=== PATIENT | male | born 1960 | race Caucasian/White ===

== ENCOUNTER 2021-12-16 06:12 | Outpatient (REF) | payer OTHER, SELFPAY ==
[2021-12-16 07:33] LABS: Hematocrit 37.7 % (42.0-52.0); Hemoglobin 12.9 g/dl (14.0-18.0); Mean Corpuscular HGB Conc 34.2 g/dl (31.0-36.0); Mean Corpuscular Hemoglobin 31.4 pg (27.0-33.0); Mean Corpuscular Volume 91.7 fL (80.0-98.0); Mean Platelet Volume 10.7 fL (9.4-12.4); Platelet Count 326 X10*3/uL (160-400); Red Blood Count 4.11 X10*6/uL (4.60-5.80); Red Cell Distribution Width 12.7 % (11.0-16.0); White Blood Count 10.8 X10*3/uL (4.8-10.8)
[2021-12-16 08:03] LABS: Alanine Aminotransferase 24 U/L (0-40); Albumin Level 4.3 g/dL (3.5-5.0); Alkaline Phosphatase 88 U/L (39-117); Anion Gap 13 (12-20); Aspartate Amino Transferase 28 U/L (5-37); Bilirubin Total 0.4 mg/dL (0.0-1.0); Blood Urea Nitrogen 12 mg/dL (9-16); Calcium 9.6 mg/dL (8.4-10.2); Carbon Dioxide 26 mmol/L (22-29); Chloride 100 mmol/L (96-108); Cholesterol 223 mg/dL; Estimated Glomerular Filt Rate > 60; Glucose Fasting 102 mg/dL (60-99); HDL Cholesterol 35 mg/dL; LDL Cholesterol Calculated 143 mg/dl; Potassium 4.9 mmol/L (3.3-5.1); Sodium 134 mmol/L (135-145); Total Protein 7.3 g/dL (6.5-8.0); Triglycerides 225 mg/dL
[2021-12-16 08:16] LABS: TSH reflex Free T4 1.55 uIU/mL (0.32-4.0)
[2021-12-16 08:28] LABS: Creatinine Urine 160.82 mg/dL; Microalbumin Urine < 5.0 mg/L
== END 2021-12-16 06:13 | disposition home or self-care (01) ==
LOC: HO.LAB 06:12
PROVIDERS: PCP Physician Assistant; Visit Provider Physician Assistant
DX: Z12.5 Encounter for screening for malignant neoplasm of prostate (principal); Z12.11 Encounter for screening for malignant neoplasm of colon
CPT/HCPCS: 36415; 80053; 80061; 82043; 84153; 84443; 85027

== ENCOUNTER 2022-06-05 16:36 | Emergency (ER) | payer OTHER, SELFPAY ==
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
[2022-06-05 17:01] VITALS: BP 158/81; PULSE 96; RESP 16; TEMP 36.8; O2SAT 100; BMI 25.9
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
[2022-06-05] MEDS: Diphth,Pertus(ACell),Tet Adult 0.5 ML SYRINGE IM (18:33)
== END 2022-06-05 19:56 | disposition home or self-care (01) ==
PROVIDERS: Emergency Provider Emergency Medicine; PCP Physician Assistant
DX: S61.216A Laceration without foreign body of right little finger without damage to nail, initial encounter (principal); S82.831A Other fracture of upper and lower end of right fibula, initial encounter for closed fracture; V28.09XA Other motorcycle driver injured in noncollision transport accident in nontraffic accident, initial encounter; Y93.89 Activity, other specified; Y92.414 Local residential or business street as the place of occurrence of the external cause; Y99.9 Unspecified external cause status
CPT/HCPCS: 12001; 29515; 73590; 73600; 90471; 90715; 99282; 99284

== ENCOUNTER 2022-06-14 07:19 | Outpatient (REF) | payer OTHER, SELFPAY ==
--- NOTE | ~2022-06-14 | XR_ITS ---
EXAMINATION: XR ANKLE, RIGHT CLINICAL INFORMATION: Pain right ankle. COMPARISON: 06/05/2022 TECHNIQUE: AP, lateral, and mortise views of the right ankle. FINDINGS: There is no change in alignment of the oblique fracture distal right fibula with no definite callus formation identified. There is approximately 5 mm displacement of the distal fracture fragment laterally. There appears to be some mild widening of the medial clear space to approximately 5 mm in diameter. On today's study there appears to be a 1 mm calcific density just inferior to the medial malleolus which may represent a small avulsion fracture. There does appear to be some soft tissue swelling about the medial ankle in this location. Plantar calcaneal spur is seen. XR/XR ankle RT min 3V IMPRESSION: No change in appearance of distal right fibular fracture. Question avulsion fracture distal tip of the medial malleolus. Widening of the medial clear space.
== END 2022-06-14 07:20 | disposition home or self-care (01) ==
LOC: HO.HOSX 07:19
PROVIDERS: Visit Provider Physician Assistant
DX: M25.571 Pain in right ankle and joints of right foot (principal)
CPT/HCPCS: 73610

== ENCOUNTER 2022-06-16 07:15 | Day surgery (SDC) | payer OTHER, SELFPAY ==
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
[2022-06-16] VITALS (9 sets, daily range): BP systolic 126–155; BP diastolic 65–86; PULSE 71–91; RESP 15–18; TEMP 36.7–37.3; O2SAT 95–99; BMI 25.8
--- NOTE | ~2022-06-16 | FL_ITS ---
EXAMINATION: XR FLUOROSCOPY WITH IMAGES CLINICAL INFORMATION: Ankle fracture. Orthopedic reduction. COMPARISON: Radiographs right ankle 06/14/2022 TECHNIQUE: Fluoroscopy performed by Dr. Stew Faustin. Fluoroscopy time: 0.1 minutes. Cumulative Dose: 0.561 mGy. DAP: 0.0098 Gycm2. Images: 4. FINDINGS: Distal fibular fracture is reduced with compression plate and multiple screws. Small plate seen on anterior medial side. Ankle mortise is symmetric. Fracture fragments are in near-anatomic alignment. Hardware intact. FL/FL guidance in OR IMPRESSION: Status post open reduction internal fixation right ankle fracture. Near-anatomic alignment. Hardware intact.
[2022-06-16] MEDS: Lactated Ringers 1,000 ML 100 ML IVCONT (08:01)
--- NOTE | 2022-06-16 09:38 | MHC.SHP ---
Pre-Procedural Eval Section A Date of Service: 06/16/22 The patient is an INPATIENT: No Changes since office visit: Yes Patient answered all questions; No Cold of Flu in the past 2 weeks, No New Medical Problems and No Changes in Medication The History & Physical has been completed within 30 days and I have reviewed it.: Yes Section B Chief Complaint: ankle fx Allergies: Allergies Allergy/AdvReac Type Severity Reaction Status Date / Time Seasonal Allergies Allergy Mild Sneezing Verified 06/14/22 10:40 Plan I have reviewed the history and physical and performed a pertinent physical examination on my patient. No changes have occurred unless specified.
--- NOTE | 2022-06-16 11:03 | P.BOP_ITS ---
Brief Operative Note Date of Service: 06/16/22 Pre-op diagnosis: Right ankle fracture Post-op diagnosis: same Procedure: 1) ORIF lateral malleolus 2) ORIF syndesmosis Implants: Springer lateral fibular locking plate Arthrex syndesmosis Tightrope Surgeon: Stew Faustin MD Anesthesia: GETA and regional Was an Leadership Development Instructor used for this Procedure?: Yes Leadership Development Instructor: Pratibha Rivera Estimated blood loss (mL): 10 IV fluids (mL): 800 Pathology: none sent Condition: stable Disposition: PACU
--- NOTE | 2022-06-16 11:07 | P.OP_ITS ---
Operative Note Operative Note Date of Service: 06/16/22 Narrative: Date of Service: 06/16/22 Pre-op diagnosis: Right ankle fracture Post-op diagnosis: same Procedure: 1) ORIF lateral malleolus 2) ORIF syndesmosis Implants: Linda lateral fibular locking plate Arthrex syndesmosis Tightrope Surgeon: Stew Faustin MD Anesthesia: GETA and regional Was an Portable Grinding Machine Operator used for this Procedure?: Yes Portable Grinding Machine Operator: Pratibha Rivera Estimated blood loss (mL): 10 IV fluids (mL): 800 Pathology: none sent Condition: stable Disposition: PACU Procedure in detail: Patient was brought to the operating room and placed supine on the operative table. All bony prominences were well padded and a time-out was called to identify proper site proper procedure proper surgeon. IV antibiotics per weight were administered. I began by exsanguinating limb is slightly tourniquet to 300 mm Hg. I then made a standard posterolateral incision over the fibula. Full- thickness flaps were taken down to the fibular shaft and distal fibula. The fracture was identified and cleaned with a combination of curette, rongeur and irrigation. A lobster claw was used to provisionally reduce the fracture. A lag screw was placed lateral to medial and posterior to anterior perpendicular to the fracture. A Standard AO technique was used. A 6 hole distal fibular locking plate was applied using standard AO technique. Biplanar fluoroscopy was used to confirm hardware position and fracture reduction. Once I was satisfied that both of these were acceptable I irrigated copiously This syndesmosis was tested using a cotton test and was unstable. A syndesmosis TIghtrope was then placed lateral to medial across the syndesmosis. Additional Cootn test was negative. Therefore all instrumentation was removed and copious irrigation was performed. Final radiographs were obtained. Absorbable suture and aiden were used for closure and the patient was placed into sterile dressings and a well-padded posterior splint. Tourniquet was let down and the patient was extubated brought to recovery room in stable condition there were no known complications.
[2022-06-16] MEDS: Ondansetron ODT 4 MG TAB.RAPDIS TRANSLINGU (13:08)
== END 2022-06-16 14:00 | disposition home or self-care (01) ==
LOC: HO.SSS 07:16
PROVIDERS: PCP Physician Assistant; Visit Provider Orthopaedic Surgery
PROC: (CPT 27792; principal; 2022-06-16 09:30)
DX: S82.831A Other fracture of upper and lower end of right fibula, initial encounter for closed fracture (principal); V23.49XA Other motorcycle driver injured in collision with car, pick-up truck or van in traffic accident, initial encounter; Y93.89 Activity, other specified; Y92.410 Unspecified street and highway as the place of occurrence of the external cause; Y99.8 Other external cause status; I10 Essential (primary) hypertension; K21.9 Gastro-esophageal reflux disease without esophagitis; J30.2 Other seasonal allergic rhinitis; Z79.899 Other long term (current) drug therapy; Z79.1 Long term (current) use of non-steroidal anti-inflammatories (NSAID); Z94.7 Corneal transplant status
CPT/HCPCS: 27792; 27829; C1713; J0690; J1100; J1170; J2250; J2405; J2795; J3010

== ENCOUNTER → 2022-06-28 14:37 | Outpatient (BNVA) | payer OTHER, SELFPAY | PROVIDERS: PCP Physician Assistant; Visit Provider Physician Assistant | DX: S82.831A Other fracture of upper and lower end of right fibula, initial encounter for closed fracture (principal) | CPT/HCPCS: 29405 ==

== ENCOUNTER 2022-07-27 | Outpatient (REF) | payer OTHER, SELFPAY ==
--- NOTE | ~2022-07-27 | XR_ITS ---
EXAMINATION: XR ANKLE, RIGHT CLINICAL INFORMATION: Fracture lateral malleolus with asymmetric mortise. Follow-up. COMPARISON: Fluoroscopic spot views 06/16/2022, radiographs right ankle 06/14/2022 TECHNIQUE: AP, lateral, and mortise views of the right ankle. FINDINGS: The orthopedic hardware is intact. There is no destructive process or osteolysis. Fracture fragments are in anatomic alignment. Ankle mortise is symmetric. There is a bulky plantar and small posterior calcaneal spur. XR/XR ankle RT min 3V IMPRESSION: 1. Orthopedic hardware intact. No destructive process or osteolysis. 2. Anatomic alignment.
== END 2022-07-27 00:01 | disposition home or self-care (01) ==
LOC: HO.HOSX
PROVIDERS: Visit Provider Physician Assistant
DX: M25.571 Pain in right ankle and joints of right foot (principal)
CPT/HCPCS: 73610

== ENCOUNTER 2022-09-07 11:47 | Outpatient (REF) | payer OTHER, SELFPAY ==
--- NOTE | ~2022-09-07 | XR_ITS ---
EXAMINATION: XR ANKLE, RIGHT CLINICAL INFORMATION: Pain. COMPARISON: Prior radiographs, most recently 07/27/2022. TECHNIQUE: AP, lateral, and mortise views of the right ankle. FINDINGS: An orthopedic plate and screws are identified to the distal right fibula. There are buttons applied to the bilateral malleoli, consistent with a tight rope syndesmosis. Fracture lines are not presently appreciated with certainty. The ankle mortise is intact. There is very mild osteoarthritic change of the tibiotalar joint. No joint effusion is seen. Boehler's angle is normal. There is a moderate plantar calcaneal spur. No focal soft tissue swelling, gas or foreign body is seen. XR/XR ankle RT min 3V IMPRESSION: There are postoperative changes, as detailed. No fracture, dislocation or joint effusion is presently seen.
== END 2022-09-07 11:48 | disposition home or self-care (01) ==
LOC: HO.HOSX 11:47
PROVIDERS: Visit Provider Physician Assistant
DX: S82.831D Other fracture of upper and lower end of right fibula, subsequent encounter for closed fracture with routine healing (principal)
CPT/HCPCS: 73610

== ENCOUNTER 2022-09-08 09:00 | Outpatient (RCR) | payer OTHER, SELFPAY ==
--- NOTE | 2022-08-18 10:49 | MHC.PT.EP ---
[facility] [place] Office [place] Office [place] Office [address] Katarzyna Rodriguez [address] [phone] F: [phone] F: [phone] F: [phone] F: [phone] Physical Therapy Plan of Care Date of Evaluation: Date of Surgery: 06/16/22 Diagnosis: s/p Right Ankle ORIF 06/15/22 () Assessment: HENRRY IS A PLEASANT 62 YO GENTLEMAN WHO PRESENTS S/P ORIF OF RIGHT ANKLE. 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 UPON EXAM HE DEMONSTRATES DECREASED ANKLE ROM, DECREASED LE STREGTH, DECREASED SOFT TISSUE MOBILITY, ALTERED GAIT AND BALANCE AND INCREASED SORENESS. FUNCTIONAL LIMITATIONS INCLUDE DECREASED ABILITY TO WALK LONG DISTANCES, UNABLE TO PERFORM RECIPROCAL GAIT ON STAIRS, INCREASED RELIANCE ON ASSISTIVE DEVICE. HE REPORTS DECREASED ABILITY TO PERFORM WORK TASKS, DECREASED PARTICIPATION IN COMMUNITY AND RECREATIONAL ACTIVITIES. Frequency and Duration: The patient will be seen 2 X WEEK FOR 4 WEEKS Short Term Goals: INITIATE HEP AND PROMOTE SELF MANAGEMENT OF SYMPTOMS Tin Flopper Goals: 1. FULL ANKLE ROM 2. FULL LE STRENGTH EQUAL DON 3. TO PERFORM RECIPROCAL GAIT ON STAIRS 4. RTW FT/FD Treatment Plan: Modalities to reduce pain, spasms and effusion. Manual therapy to restore motion and function. Therapeutic exercise to improve strength and flexibility. Neuromuscular re-education for posture and balance. Therapeutic activities to return to functional activities of daily living. Electronically signed by: NHAN NAVARRO PT, DPT Please sign and return to therapist. Thank you for your referral.
--- NOTE | 2022-09-08 13:51 | MHC.PT.DC ---
[facility] [place] Office [place] Office [place] Office [address] Katherine Rodriguez [address] [phone] F: [phone] F: [phone] F: [phone] F: [phone] Physical Therapy Discharge Report Diagnosis: s/p Right Ankle ORIF 06/15/22 () Date of Surgery: 06/16/22 Date of Evaluation: 08/18/22 Date of Discharge: 09/08/22 Treatments to Date: 6 Cancellations to Date: 0 No Shows to Date: 0 Discharge Status: Achieved Goals Improved Function Independent with HEP Patient Elected to Stop Discharge Summary: Moses progressed well in pt with near full resolution of symptoms although he does reports some challenge with long periods of walking and stair climbing. Requests to leave early from PT today and states he feels well and requests DC on this date. Electronically signed by: Leticia Girard PT, DPT Please sign and return to therapist. Thank you for your referral.
== END 2022-09-08 13:51 | disposition home or self-care (01) ==
LOC: HO.PT 09:00
PROVIDERS: PCP Physician Assistant; Visit Provider Physician Assistant
DX: S82.831D Other fracture of upper and lower end of right fibula, subsequent encounter for closed fracture with routine healing (principal)
CPT/HCPCS: 97110; 97140; 97161; 97530

== ENCOUNTER 2023-05-09 10:58 | Outpatient (AMB) | payer OTHER, SELFPAY ==
--- NOTE | 2023-05-09 10:59 | MHC.PC.OV ---
Vital Signs 05/09/23 11:00 05/09/23 11:29 Height 5 ft 9 in Weight 187 lb BMI 27.6 BP 142/74 H 138/80 Blood Pressure Location Lt brachial Position Sitting Pulse 70 Pulse Source Pulse Oximeter Pulse Oximetry (%) 100 Oxygen Delivery Method Room Air Intake Visit Reasons: f/u HTN Balance Recesser Required: No Accompanied by: Self / Same As Patient Allergies Seasonal Allergies Allergy (Mild, Verified 05/09/23 11:15) Sneezing Medication List - Last Reconciled 05/09/23 by Danny Coburn PA-C amlodipine 5 mg PO DAILY 90 days esomeprazole magnesium (Nexium) 20 mg PO DAILY ibuprofen 800 mg PO Q8H PRN 15 days lisinopril-hydrochlorothiazide 20-12.5 mg 1 tab PO DAILY multivitamin 1 tab PO DAILY Tobacco use date assessed: 11/08/22 Dental Screening Dental Screen Date: 05/09/23 Did you have a dental visit in the last 12 months?: No Did you have a dental problem in the last 6 months where you did not have access to dental care?: No Was dental information given to patient?: Patient declined HPI f/u HTN HPI Details Moses is a 63-year-old male here today for follow-up visit.? Patient has a past medical history significant for hypertension, GERD, borderline high total cholesterol. .. HTN: .? Blood pressure has been better controlled with amlodipine, lisinopril hydrochlorothiazide. Today in office blood pressure acceptable. Otherwise denies any chest discomfort, shortness of breath, dizziness or headaches.? .. GERD:? He does report using Nexium on a daily basis.? He understands his diet is very poor which likely causes him to continue to have GERD symptoms. .. Borderline high cholesterol: Patient's most recent lipid panel showing borderline high total cholesterol. Has been working on low cholesterol diet [facility] Medical History (Updated 05/09/23 @ 11:20 by Danny Coburn PA-C) GERD (gastroesophageal reflux disease) Corneal transplant infection of right eye HTN (hypertension) Surgical History S/P ORIF (open reduction internal fixation) fracture History of colon resection Hx of cataract surgery Social History Housing: House Alcohol intake: current Alcohol intake frequency: a few times a month Alcohol type: beer Patient Tobacco Use Status: Never used Tobacco e-Cigarette/Vaping Use: Never Used Substance Use Type: Marijuana Current occupational status: employed 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 Ochoa Richardson, Cyndi Pendleton, Pablito Baeza and colleagues, with an educational nani from [employer]. Review of Systems Const Denies headache(s) Eyes Denies loss of vision ENT Denies vertigo, Denies dizziness, Denies headache(s) and Denies sore throat Card Denies chest pain, Denies leg edema and Denies lightheadedness Resp Denies cough, Denies hemoptysis and Denies wheezing GI Denies abdominal pain, Denies melena, Denies constipation, Denies diarrhea and Denies vomiting Denies dysuria, Denies urinary frequency and Denies urinary urgency Musc Denies arthralgias, Denies joint swelling, Denies numbness and Denies tingling Neuro Denies Abnormal speech present, Denies behavioral changes, Denies vertigo, Denies dizziness, Denies headache(s), Denies loss of vision, Denies memory loss, Denies numbness and Denies tingling Psych Denies anxiety, Denies behavioral changes, Denies depression, Denies memory loss and Denies panic attacks Raza/Lymph Denies easy bleeding and Denies easy bruising Aller/Immun Denies wheezing Physical exam (Primary Care) Vital Signs: Last Vital Signs Pulse 70 05/09/23 11:00 BP 142/74 H 05/09/23 11:00 Pulse Ox 100 05/09/23 11:00 Oxygen Delivery Method Room Air 05/09/23 11:00 BMI result Body Mass Index 27.6 Tobacco/Smoking Status: Tobacco use Status Tobacco use date assessed 11/08/22 05/09/23 11:04 Patient Tobacco Use Status Never used Tobacco 05/09/23 11:04 e-Cigarette/Vaping Use Never Used 05/09/23 11:04 Thrive Assessment: Date of Thrive Assessment Date Thrive assessed 11/08/22 05/09/23 11:04 Const General: healthy appearing, no acute distress, alert and awake Nutritional Appearance: well nourished Orientation/consciousness: oriented to person, oriented to place and oriented to time HENMT Ears: TM's normal bilaterally General nose exam: Normal nasal mucous membranes and turbinates present Eyes Conjunctivae: conjunctivae normal Sclerae: sclerae normal Pupils: Equal, round and reactive pupils present Neck Neck: Yes no lymphadenopathy and Yes no JVD Thyroid: Thyroid normal Carotids: no bruits Resp Effort & Inspection: normal respiratory effort and not tachypneic Auscultation: no crackles, no rales, no rhonchi and no wheezes Cardio Rate: regular rate Rhythm: regular rhythm Heart sounds: no murmurs and normal S1 and S2 GI Palpation (GI): Soft to palpation, nontender, no hepatomegaly and no splenomegaly Auscultation: normal bowel sounds Skin General skin exam: no rashes or lesions noted and dry skin Neuro General: oriented to person, oriented to place and oriented to time Cranial nerves: Yes Equal, round and reactive pupils present Speech: No Abnormal speech present Gait exam (Neuro): Normal gait present Motor exam (neuro): no tremor noted Extrem Right upper extremity: full ROM Left upper extremity: full ROM Right lower extremity: full ROM; no edema Left lower extremity: full ROM; no edema Psych Mental Status: mental status grossly normal Speech and movement: Normal speech and movement present Affect: normal affect Attitude: cooperative Thought process: Normal thought process present Assessment and Plan Assessment & Plan (1) HTN (hypertension): Code(s): I10 - Essential (primary) hypertension Qualifiers: Hypertension type: primary hypertension Qualified Code(s): I10 - Essential (primary) hypertension Plan: Patient's blood pressure acceptable today in office. Will continue his current antihypertensive medications with goal blood pressure to be below 140/90 (2) GERD (gastroesophageal reflux disease): Code(s): K21.9 - Gastro-esophageal reflux disease without esophagitis Qualifiers: Esophagitis presence: without esophagitis Qualified Code(s): K21.9 - Gastro-esophageal reflux disease without esophagitis Plan: Uses Nexium every other day with good effect (3) Borderline high cholesterol: Code(s): E78.9 - Disorder of lipoprotein metabolism, unspecified Plan: Will continue to follow patient's total cholesterol and LDL. He has been working on low-cholesterol diet. Goal LDL is to be below 130 Orders: Orders Microalbumin, Random (w Creat) Today I10 - Essential (primary) hypertension Comprehensive [place]. Panel Fast Today I10 - Essential (primary) hypertension Complete Blood Count no Diff Today K21.9 - Gastro-esophageal reflux disease without esophagitis Prostate Specific Antigen Scr Today K21.9 - Gastro-esophageal reflux disease without esophagitis, Z12.5 - Encounter for screening for malignant neoplasm of prostate Lipid Panel Today E78.9 - Disorder of lipoprotein metabolism, unspecified Coding Level of Care Code Est Pt Level 4 (19060) Diagnoses Primary hypertension I10 Hypertension type: primary hypertension Gastroesophageal reflux disease without esophagitis K21.9 Esophagitis presence: without esophagitis Borderline high cholesterol E78.9
[2023-05-09 11:00] VITALS: BP 142/74; PULSE 70; O2SAT 100; BMI 27.6
[2023-05-09 11:29] VITALS: BP 138/80
== END 2023-05-09 11:30 | disposition home or self-care (01) ==
PROVIDERS: Visit Provider Physician Assistant
DX: I10 Essential (primary) hypertension (principal); K21.9 Gastro-esophageal reflux disease without esophagitis; E78.9 Disorder of lipoprotein metabolism, unspecified
CPT/HCPCS: 99214

== ENCOUNTER 2023-11-14 11:23 | Outpatient (AMB) | payer OTHER, SELFPAY ==
--- NOTE | 2023-11-14 11:24 | A.OFFPC_ITS ---
Vital Signs 11/14/23 11:33 Height 5 ft 9 in Weight 190 lb 9 oz BMI 28.1 BP 132/78 Blood Pressure Location Lt brachial Position Sitting Pulse 72 Pulse Source Pulse Oximeter Pulse Oximetry (%) 99 Oxygen Delivery Method Room Air Intake Visit Reasons: PE Intake Note: Patient is here today for a physical. Plans Examiner Required: No Accompanied by: Self / Same As Patient Allergies Seasonal Allergies Allergy (Mild, Verified 11/14/23 11:39) Sneezing Medication List - Last Reconciled 11/14/23 by Danny Coburn PA-C amlodipine 5 mg PO DAILY 90 days esomeprazole magnesium (Nexium) 20 mg PO DAILY ibuprofen 800 mg PO Q8H PRN 15 days lisinopril-hydrochlorothiazide 20-12.5 mg 1 tab PO DAILY multivitamin 1 tab PO DAILY Tobacco use date assessed: 11/14/23 Dental Screening Dental Screen Date: 11/14/23 Did you have a dental visit in the last 12 months?: No Did you have a dental problem in the last 6 months where you did not have access to dental care?: No Was dental information given to patient?: Patient declined HPI PE HPI Details Moses is a 63-year-old male here today for an annual physical..? Patient has a past medical history significant for hypertension, GERD, borderline high total cholesterol. Unfortunately was unable to get fasting labs done before today's annual physical. .. HTN: .? Blood pressure has been better controlled with amlodipine, lisinopril hydrochlorothiazide. Otherwise denies any chest discomfort, shortness of breath, dizziness or headaches.? .. GERD:? He does report using Nexium on a daily basis with good effect. .. Borderline high cholesterol: Patient's most recent lipid panel showing borderline high total cholesterol. Has been working on low cholesterol diet Colonoscopy: Cologuard done in 2022 - neg Vaccine: UTD with COVID Vaccine ,?up-to-date with tetanus, Decline flu vaccine, Considering shingles vaccine. 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 1. Little interest or pleasure in doing things: not at all 2. Feeling down, depressed, or hopeless: not at all 3. Trouble falling or staying asleep, or sleeping too much: not at all 4. Feeling tired or having little energy: not at all 5. Poor appetite or overeating: not at all 6. Feeling bad about yourself - or that you are a failure or have let yourself or your family down: not at all 7. Trouble concentrating on things, such as reading the newspaper or watching television: not at all 8. Moving or speaking so slowly that other people could have noticed. Or the opposite - being so fidgety or restless that you have been moving around a lot more than usual: not at all 9. Thoughts that you would be better off or of hurting yourself in some way: not at all Total score: 0 Depression Screening Interpretation: Negative Depression Screening Done: Yes 87097 - PHQ-9 Billing: Yes Source: Developed by Drs. Ochoa Richardson, Cyndi Pendleton, Pablito Baeza and colleagues, with an educational nani from [employer]. Thrive Questionnaire Date Thrive assessed: 11/14/23 I am a: Patient What is your living situation today?: I have a steady place to live Within the past 12 months, did the food you bought not last and you didn't have the money to get more?: Never true Within the past 12 months, did you worry whether your food would run out before you got money to buy more?: Never true Do you have trouble paying for medicines?: No Do you have trouble getting transportation to medical appointments?: No Do you have trouble paying your heating and electricity bill?: No Do you have trouble taking care of your child, family member or friend?: No Do you have trouble with day-to-day activities such as bathing, preparing meals, shopping, managing finances, etc.?: No Are you currently unemployed and looking for a job?: No Are you interested in more education?: No Please select the resources that you would like help with: None Currently or been in a relationship where the following occur: no concerns reported THRIVE Score: 0 AUDIT C Alcohol Use Questionnaire (AUDIT-C) 1. How often do you have a drink containing alcohol?: 2-3 times a week 2. How many drinks containing alcohol do you have on a typical day when you are drinking?: 1 or 2 3. How often do you have six or more drinks on one occasion?: Never Total Score: 3 ZACH-7 AMB Questionnaire ZACH-7 Date ZACH - 7 assessed: 11/14/23 Feeling nervous, anxious, or on edge: 0 = Not at all Not being able to stop or control worryin = Not at all Worrying too much about different things: 0 = Not at all Trouble relaxin = Not at all Being so restless that it is hard to sit still: 0 = Not at all Becoming easily annoyed or irritable: 0 = Not at all Feeling afraid as if something awful might happen: 0 = Not at all Total ZACH-7 score (0-4 normal; 5-9 mild; 10-14 moderate; 15-21 severe): 0 Source: Developed by Drs. Ochoa Richardson, Cyndi Pendleton, Pablito Baeza and colleagues, with an educational nani from [employer]. ZACH-7 Assessment Billing ZACH-7 Assessment Tool: ZACH-7 Assessment 99819 Review of Systems Const Denies body aches, Denies chills, Denies excessive sweating, Denies fatigue, Denies fever(s) and Denies headache(s) Eyes Denies blurry vision ENT Denies dysphagia, Denies vertigo, Denies dizziness, Denies headache(s), Denies hearing loss and Denies tinnitus Card Denies chest pain, Denies chest pain with activity, Denies syncope, Denies irregular heart rhythm and Denies dyspnea Resp Denies chest congestion, Denies cough, Denies hemoptysis, Denies dyspnea and Denies wheezing GI Denies abdominal pain, Denies melena, Denies hematochezia, Denies coffee ground emesis, Denies dysphagia, Denies diarrhea, Denies nausea and Denies vomiting Denies difficulty urinating, Denies dysuria, Denies urinary frequency, Denies urinary hesitancy and Denies urinary urgency Musc Denies arthralgias, Denies limited range of motion, Denies muscle cramps and Denies muscle weakness Skin/Breast Denies rash and Denies skin ulcer Neuro Denies Abnormal speech present, Denies confusion, Denies vertigo, Denies dizziness, Denies syncope, Denies headache(s), Denies memory loss and Denies sei zure-like activity Psych Denies anxiety, Denies confusion, Denies depression, Denies memory loss, Denies panic attacks and Denies paranoia Endo Denies excessive sweating, Denies fatigue, Denies flushing, Denies polydipsia and Denies polyuria Aller/Immun Denies wheezing Physical exam (Primary Care) Vital Signs: Last Vital Signs Pulse 72 11/14/23 11:33 BP 132/78 11/14/23 11:33 Pulse Ox 99 11/14/23 11:33 Oxygen Delivery Method Room Air 11/14/23 11:33 BMI result Body Mass Index 28.1 Tobacco/Smoking Status: Tobacco use Status Tobacco use date assessed 11/08/22 11/14/23 11:24 Patient Tobacco Use Status Never used Tobacco 11/14/23 11:24 e-Cigarette/Vaping Use Never Used 11/14/23 11:24 Depression Screening Interpretation: Negative Thrive Assessment: Date of Thrive Assessment Date Thrive assessed 11/08/22 11/14/23 11:24 Currently or been in a relationship where the following occur: no concerns reported Const General: cooperative, comfortable, no acute distress, alert and awake; No confusion Orientation/consciousness: oriented to person, oriented to place, patient oriented x3 and No confusion HENMT Head: Yes normocephalic Ears: external ears normal and TM's normal bilaterally Face and sinus: No sinus tenderness Mouth: Normal oral and palatal mucosa present and tongue normal Teeth and gingiva: dentition normal and gingiva normal Throat: Yes posterior oropharynx normal, Yes tonsils normal and Yes uvula midline Eyes Conjunctivae: conjunctivae normal Sclerae: sclerae normal Pupils: Equal, round and reactive pupils present EOM: EOMs intact bilaterally Direct Ophthalmoscopy: No no photophobia Neck Neck: Yes no lymphadenopathy, No tender and Yes no JVD Thyroid: Thyroid normal Carotids: no bruits Chest Chest palpation & inspection: no tenderness Resp Effort & Inspection: normal respiratory effort, no audible wheezes, not labored and no stridor Auscultation: no crackles, no rales, no rhonchi and no wheezes Cardio Jugular venous distension: no JVD Rate: regular rate, not bradycardic and not tachycardic Rhythm: regular rhythm Bruits: no carotid bruits Peripheral pulses: Peripheral pulses 2+ throughout GI Inspection: Yes normal to inspection, No abdominal wall ecchymosis and No visible herniation Palpation (GI): Soft to palpation, nontender, no guarding, not rigid and No hepatosplenomegaly present Auscultation: normoactive bowel sounds General: Yes no CVA tenderness Back/Spine/Pelvis Back: no CVA tenderness and No back tenderness Cervical Spine: cervical ROM normal Thoracic/Lumbar Spine: thoracic and lumbar spine normal to inspection, straight leg raise negative bilaterally, No thoraco-lumbar ROM limited and No lumbar spinal tenderness Skin Lesions: no lesions Rashes: no rashes Wounds: no wounds Neuro General: oriented to person, oriented to place, patient oriented x3, CN's II-XI intact bilaterally and No confusion Cranial nerves: Yes Equal, round and reactive pupils present and Yes Normal accommodation reflex present Cognition (Neuro): normal cognition Speech: No Abnormal speech present Gait exam (Neuro): Normal gait present Motor exam (neuro): 5/5 motor strength present throughout Extrem Right upper extremity: full ROM; no cyanosis Left upper extremity: full ROM; no cyanosis Right lower extremity: no edema Left lower extremity: no edema Psych Appearance: grossly normal Mental Status: mental status grossly normal Affect: normal affect Attitude: cooperative Thought process: Normal thought process present Assessment and Plan Assessment & Plan (1) Annual physical exam: Code(s): Z00.00 - Encounter for general adult medical examination without abnormal findings (2) HTN (hypertension): Code(s): I10 - Essential (primary) hypertension Qualifiers: Hypertension type: primary hypertension Qualified Code(s): I10 - Essential (primary) hypertension Plan: Patient's blood pressure acceptable today in office. Will continue his current antihypertensive medications with goal blood pressure to be below 140/90 (3) GERD (gastroesophageal reflux disease): Code(s): K21.9 - Gastro-esophageal reflux disease without esophagitis Qualifiers: Esophagitis presence: without esophagitis Qualified Code(s): K21.9 - Gastro-esophageal reflux disease without esophagitis Plan: Uses Nexium every other day with good effect (4) Borderline high cholesterol: Code(s): E78.9 - Disorder of lipoprotein metabolism, unspecified Plan: Will continue to follow patient's total cholesterol and LDL. He has been workin g on low-cholesterol diet. Goal LDL is to be below 130 Coding Level of Care Code Est Pt Prev Care 40-64y(01918) Diagnoses Annual physical exam Z00.00 Primary hypertension I10 Hypertension type: primary hypertension Gastroesophageal reflux disease without esophagitis K21.9 Esophagitis presence: without esophagitis Borderline high cholesterol E78.9 Additional Codes ZACH-7 Assessment Billing - ZACH-7 Assessment Tool: ZACH-7 Assessment [id number] ([id number])
[2023-11-14 11:33] VITALS: BP 132/78; PULSE 72; O2SAT 99; BMI 28.1
== END 2023-11-14 11:56 | disposition home or self-care (01) ==
PROVIDERS: Visit Provider Physician Assistant
DX: Z00.00 Encounter for general adult medical examination without abnormal findings (principal); I10 Essential (primary) hypertension; K21.9 Gastro-esophageal reflux disease without esophagitis; E78.9 Disorder of lipoprotein metabolism, unspecified
CPT/HCPCS: 99396

== ENCOUNTER 2023-11-15 07:07 | Outpatient (REF) | payer OTHER, SELFPAY ==
[2023-11-15 07:55] LABS: Hematocrit 38.6 % (42.0-52.0); Hemoglobin 13.2 g/dl (14.0-18.0); Mean Corpuscular HGB Conc 34.2 g/dl (31.0-36.0); Mean Corpuscular Hemoglobin 30.8 pg (27.0-33.0); Mean Platelet Volume 10.2 fL (9.4-12.4); Platelet Count 321 X10*3/uL (160-400); Red Blood Count 4.29 X10*6/uL (4.60-5.80); Red Cell Distribution Width 12.5 % (11.0-16.0); White Blood Count 9.7 X10*3/uL (4.8-10.8)
[2023-11-15 08:29] LABS: Alanine Aminotransferase 20 U/L (0-40); Albumin Level 4.2 g/dL (3.5-5.0); Alkaline Phosphatase 104 U/L (39-117); Anion Gap 12 (12-20); Aspartate Amino Transferase 26 U/L (5-37); Bilirubin Total 0.3 mg/dL (0.0-1.0); Blood Urea Nitrogen 19 mg/dL (9-16); Calcium 9.4 mg/dL (8.4-10.2); Carbon Dioxide 26 mmol/L (22-29); Chloride 100 mmol/L (96-108); Cholesterol 228 mg/dL (<200); Estimated Glomerular Filt Rate > 60; Glucose Fasting 106 mg/dL (60-99); HDL Cholesterol 32 mg/dL (>40); LDL Cholesterol Calculated 121 mg/dL (<100); Potassium 4.2 mmol/L (3.3-5.1); Sodium 134 mmol/L (135-145); Total Protein 7.4 g/dL (6.5-8.0); Triglycerides 377 mg/dL (<150)
[2023-11-15 08:30] LABS: Creatinine Urine 130.34 mg/dL; Microalbumin Urine < 5.0 mg/L
[2023-11-15 08:42] LABS: Prostate Specific Antigen Scr 1.28 ng/mL (<0.05-4.0)
== END 2023-11-15 07:08 | disposition home or self-care (01) ==
LOC: HO.LAB 07:07
PROVIDERS: PCP Physician Assistant; Visit Provider Physician Assistant
DX: Z12.5 Encounter for screening for malignant neoplasm of prostate (principal); K21.9 Gastro-esophageal reflux disease without esophagitis; E78.9 Disorder of lipoprotein metabolism, unspecified; I10 Essential (primary) hypertension
CPT/HCPCS: 36415; 80053; 80061; 82043; 82570; 84153; 85027

== ENCOUNTER 2025-04-24 14:30 | Outpatient (AMB) | payer OTHER, SELFPAY ==
[2025-04-24 14:32] VITALS: BP 154/78; PULSE 76; RESP 18; TEMP 36.3; O2SAT 98; BMI 28.1
--- NOTE | 2025-04-24 14:32 | A.OFFPC_ITS ---
Vital Signs 04/24/25 14:32 Height 5 ft 9 in Weight 190 lb BMI 28.1 BP 154/78 H Blood Pressure Location Lt brachial Position Sitting Respiration 18 Pulse 76 Pulse Source Pulse Oximeter Temp 97.3 F Temp Source Temporal Artery Scan Pulse Oximetry (%) 98 Oxygen Delivery Method Room Air Intake Visit Reasons: annual exam Fashion Coordinator Required: No Accompanied by: Self / Same As Patient Allergies Seasonal Allergies Allergy (Mild, Verified 04/24/25 15:11) Sneezing Medication List - Last Reconciled 04/24/25 by Danny Coburn PA-C amlodipine 5 mg PO DAILY 90 days esomeprazole magnesium (Nexium) 20 mg PO DAILY ibuprofen 800 mg PO Q8H PRN 15 days lisinopril-hydrochlorothiazide 20-12.5 mg 1 tab PO DAILY multivitamin 1 tab PO DAILY Tobacco use date assessed: 04/24/25 Fall risk assessment: No Falls in past year Last assessed Fall Risk: 04/24/25 Dental Screening Dental Screen Date: 04/24/25 Did you have a dental visit in the last 12 months?: No Did you have a dental problem in the last 6 months where you did not have access to dental care?: No Was dental information given to patient?: No HPI annual exam HPI Details Moses is a 65-year-old male here today for an annual physical..? Patient has a past medical history significant for hypertension, GERD, borderline high total cholesterol. Unfortunately was unable to get fasting labs done before today's annual physical. .. HTN: .? Blood pressure elevated today in office, patient continues on amlodipine, lisinopril hydrochlorothiazide. He reports feeling a bit angry today due to a scheduling snafu today in the office. He does not regularly check his blood pressure . He reports feeling fine Otherwise denies any chest discomfort, shortness of breath, dizziness or headaches.? .. GERD:? He does report using Nexium on a daily basis with good effect. .. Borderline high cholesterol: Patient's most recent lipid panel showing borderline high total cholesterol. Has been working on low cholesterol diet Colonoscopy: Cologuard done in 2022 - neg Vaccine: UTD with COVID Vaccine ,?up-to-date with tetanus, Decline flu vaccine, Considering shingles vaccine. [facility], [facility] Medical History GERD (gastroesophageal reflux disease) Corneal transplant infection of right eye HTN (hypertension) Surgical History S/P ORIF (open reduction internal fixation) fracture History of colon resection Hx of cataract surgery Social History (Updated 04/24/25 @ 15:15 by Danny Coburn PA-C) Housing: House Alcohol intake: current Alcohol intake frequency: a few times a month Alcohol type: beer Patient Tobacco Use Status: Never used Tobacco e-Cigarette/Vaping Use: Never Used Substance Use Type: Marijuana service: No Current occupational status: employed 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 1. Little interest or pleasure in doing things: not at all 2. Feeling down, depressed, or hopeless: not at all 3. Trouble falling or staying asleep, or sleeping too much: not at all 4. Feeling tired or having little energy: not at all 5. Poor appetite or overeating: not at all 6. Feeling bad about yourself - or that you are a failure or have let yourself or your family down: not at all 7. Trouble concentrating on things, such as reading the newspaper or watching television: not at all 8. Moving or speaking so slowly that other people could have noticed. Or the opposite - being so fidgety or restless that you have been moving around a lot more than usual: not at all 9. Thoughts that you would be better off or of hurting yourself in some way: not at all Total score: 0 Depression Screening Interpretation: Negative Depression Screening Done: Yes 70541 - PHQ-9 Billing: Yes Source: Developed by Drs. Ochoa Richardson, Cyndi Pendleton, Pablito Baeza and colleagues, with an educational nani from [employer]. Thrive Questionnaire Date Thrive assessed: 04/24/25 I am a: Patient What is your living situation today?: I have a steady place to live Within the past 12 months, did the food you bought not last and you didn't have the money to get more?: Never true Within the past 12 months, did you worry whether your food would run out before you got money to buy more?: Never true Do you have trouble paying for medicines?: No Do you have trouble getting transportation to medical appointments?: No Do you have trouble paying your heating and electricity bill?: No Do you have trouble taking care of your child, family member or friend?: No Do you have trouble with day-to-day activities such as bathing, preparing meals, shopping, managing finances, etc.?: No Are you currently unemployed and looking for a job?: No Are you interested in more education?: No Please select the resources that you would like help with: None THRIVE Score: 0 AUDIT C Alcohol Use Questionnaire (AUDIT-C) 1. How often do you have a drink containing alcohol?: 2-3 times a week 2. How many drinks containing alcohol do you have on a typical day when you are drinking?: 1 or 2 3. How often do you have six or more drinks on one occasion?: Never Total Score: 3 ZACH-7 AMB Questionnaire ZACH-7 Date ZACH - 7 assessed: 04/24/25 Feeling nervous, anxious, or on edge: 0 = Not at all Not being able to stop or control worryin = Not at all Worrying too much about different things: 0 = Not at all Trouble relaxin = Not at all Being so restless that it is hard to sit still: 0 = Not at all Becoming easily annoyed or irritable: 0 = Not at all Feeling afraid as if something awful might happen: 0 = Not at all Total ZACH-7 score (0-4 normal; 5-9 mild; 10-14 moderate; 15-21 severe): 0 Source: Developed by Drs. Ochoa Richardson, Cyndi Pendleton, Pablito Baeza and colleagues, with an educational nani from [employer]. ZACH-7 Assessment Billing ZACH-7 Assessment Tool: ZACH-7 Assessment 61396 Review of Systems Const Denies body aches, Denies chills, Denies excessive sweating, Denies fatigue, Denies fever(s) and Denies headache(s) Eyes Denies blurry vision ENT Denies dysphagia, Denies vertigo, Denies dizziness, Denies headache(s), Denies hearing loss and Denies tinnitus Card Denies chest pain, Denies chest pain with activity, Denies syncope, Denies irregular heart rhythm and Denies dyspnea Resp Denies chest congestion, Denies cough, Denies hemoptysis, Denies dyspnea and Denies wheezing GI Denies abdominal pain, Denies melena, Denies hematochezia, Denies coffee ground emesis, Denies dysphagia, Denies diarrhea, Denies nausea and Denies vomiting Denies difficulty urinating, Denies dysuria, Denies urinary frequency, Denies urinary hesitancy and Denies urinary urgency Musc Denies arthralgias, Denies limited range of motion, Denies muscle cramps and Denies muscle weakness Skin/Breast Denies rash and Denies skin ulcer Neuro Denies Abnormal speech present, Denies confusion, Denies vertigo, Denies dizziness, Denies syncope, Denies headache(s), Denies memory loss and Denies seizure-like activity Psych Denies anxiety, Denies confusion, Denies depression, Denies memory loss, Denies panic attacks and Denies paranoia Endo Denies excessive sweating, Denies fatigue, Denies flushing, Denies polydipsia and Denies polyuria Aller/Immun Denies wheezing Physical exam (Primary Care) Vital Signs: Last Vital Signs Temp 97.3 F 04/24/25 14:32 Pulse 76 04/24/25 14:32 Resp 18 04/24/25 14:32 BP 154/78 H 04/24/25 14:32 Pulse Ox 98 04/24/25 14:32 Oxygen Delivery Method Room Air 04/24/25 14:32 Care Plan Goal for BP management: Continue amlodipine and lisinopril hydrochlorothiazide, monitor blood pressure to ensure stable at home. If elevated will consider increasing amlodipine to 10 mg Next steps: Consider increasing amlodipine 10 mg for better blood pressure control BMI result Body Mass Index 28.1 Tobacco/Smoking Status: Tobacco use Status Tobacco use date assessed 04/24/25 04/24/25 14:38 Patient Tobacco Use Status Never used Tobacco 04/24/25 15:15 e-Cigarette/Vaping Use Never Used 04/24/25 15:15 PHQ-9: PHQ-9 Score PHQ-9: Total score 0 04/24/25 15:15 Depression Screening Interpretation: Negative Thrive Assessment: Date of Thrive Assessment Date Thrive assessed 04/24/25 04/24/25 14:38 Const General: cooperative, comfortable, no acute distress, alert and awake; No confusion Orientation/consciousness: oriented to person, oriented to place, patient oriented x3 and No confusion HENMT Head: Yes normocephalic Ears: external ears normal and TM's normal bilaterally Face and sinus: No sinus tenderness Mouth: Normal oral and palatal mucosa present and tongue normal Teeth and gingiva: dentition normal and gingiva normal Throat: Yes posterior oropharynx normal, Yes tonsils normal and Yes uvula midline Eyes Conjunctivae: conjunctivae normal Sclerae: sclerae normal Pupils: Equal, round and reactive pupils present EOM: EOMs intact bilaterally Direct Ophthalmoscopy: No no photophobia Neck Neck: Yes no lymphadenopathy, No tender and Yes no JVD Thyroid: Thyroid normal Carotids: no bruits Chest Chest palpation & inspection: no tenderness Resp Effort & Inspection: normal respiratory effort, no audible wheezes, not labored and no stridor Auscultation: no crackles, no rales, no rhonchi and no wheezes Cardio Jugular venous distension: no JVD Rate: regular rate, not bradycardic and not tachycardic Rhythm: regular rhythm Bruits: no carotid bruits Peripheral pulses: Peripheral pulses 2+ throughout GI Inspection: Yes normal to inspection, No abdominal wall ecchymosis and No visible herniation Palpation (GI): Soft to palpation, nontender, no guarding, not rigid and No hepatosplenomegaly present Auscultation: normoactive bowel sounds General: Yes no CVA tenderness Back/Spine/Pelvis Back: no CVA tenderness and No back tenderness Cervical Spine: cervical ROM normal Thoracic/Lumbar Spine: thoracic and lumbar spine normal to inspection, straight leg raise negative bilaterally, No thoraco-lumbar ROM limited and No lumbar spinal tenderness Skin Lesions: no lesions Rashes: no rashes Wounds: no wounds Neuro General: oriented to person, oriented to place, patient oriented x3, CN's II-XI intact bilaterally and No confusion Cranial nerves: Yes Equal, round and reactive pupils present and Yes Normal accommodation reflex present Cognition (Neuro): normal cognition Speech: No Abnormal speech present Gait exam (Neuro): Normal gait present Motor exam (neuro): 5/5 motor strength present throughout Extrem Right upper extremity: full ROM; no cyanosis Left upper extremity: full ROM; no cyanosis Right lower extremity: no edema Left lower extremity: no edema Psych Appearance: grossly normal Mental Status: mental status grossly normal Affect: normal affect Attitude: cooperative Thought process: Normal thought process present Coding Level of Care Code Est Pt Prev Care 40-64y(03409) Diagnoses Annual physical exam Z00.00 Primary hypertension I10 Hypertension type: primary hypertension Borderline high cholesterol E78.9 Additional Codes ZACH-7 Assessment Billing - ZACH-7 Assessment Tool: ZACH-7 Assessment 53527 ([id number]) PHQ-9 - 81453 - PHQ-9 Billing: Yes ([id number]) Assessment & Plan Assessment & Plan (1) Annual physical exam: Code(s): Z00.00 - Encounter for general adult medical examination without abnormal findings Category: Medical Plan: As per HPI (2) HTN (hypertension): Code(s): I10 - Essential (primary) hypertension Category: Medical Qualifiers: Hypertension type: primary hypertension Qualified Code(s): I10 - Essential (primary) hypertension Plan: Patient's blood pressure elevated today in office. He continues on both amlod ipine and lisinopril hydrochlorothiazide. Blood pressure was well controlled with current doses of his antihypertensive medication though today blood pressure is elevated. He reports the Avelina scheduling snafu today in office which made him a bit angry which may have elevated his blood pressure. Unfortunately he has not been checking his blood pressure at home and advised to do so. Goal blood pressures to be below 140/90 (3) Borderline high cholesterol: Code(s): E78.9 - Disorder of lipoprotein metabolism, unspecified Category: Medical Plan: Patient has a history of borderline high cholesterol . Will recheck fasting lipid panel to ensure stable total cholesterol and LDL. Goal LDL is to be below 130 Orders: Orders Comprehensive [place]. Panel Fast 04/24/25 K21.9 - Gastro-esophageal reflux disease without esophagitis Lipid Panel 04/24/25 E78.9 - Disorder of lipoprotein metabolism, unspecified Complete Blood Count no Diff 04/24/25 K21.9 - Gastro-esophageal reflux disease without esophagitis Microalbumin, Random (w Creat) 04/24/25 I10 - Essential (primary) hypertension Medications: Refilled amlodipine 5 mg PO DAILY 90 tabs 2RF 90 days I10 - Essential (primary) hypertension ibuprofen 800 mg PO Q8H PRN 45 tabs 2RF pain 15 days M17.11 - Unilateral primary osteoarthritis, right knee lisinopril-hydrochlorothiazide 20-12.5 mg 1 tab PO DAILY 90 tabs 2RF I10 - Essential (primary) hypertension
--- OUTSIDE RECORDS SUMMARY | 2025-04-24 17:47 | XMS_ITS | Clinical Summary ---
Author Organization [facility] Address [address] [facility] [address] [place] [phone] Phone Care Team Providers Care Pit Recorder Name Role Phone Danny Coburn Primary Care Provider + Allergies No known active allergies Medications lisinopril-hydr oCHLOROthiazide (ZESTORETIC) 20-12.5 mg per tablet Take 1 tablet by mouth nightly at bedtime. Active bacitracin ophthalmic ointment Place into the right eye every evening. 3.5 g 12 0 Active Additional Information Patient not taking.Reported on 03/20/2021 acetaminophen (TYLENOL) 650 MG CR tablet Take 650 mg by mouth every 8 (eight) hours as needed for pain (specific location in comments). Active moxifloxacin (VIGAMOX) 0.5 % ophthalmic solution Place 1 drop into the right eye 3 (three) times a day. 3 mL 1 1 Active Additional Information Patient not taking.Reported on 07/29/2021 prednisoLONE acetate (PRED FORTE) 1 % ophthalmic suspension Place 1 drop into the right eye daily. 10 mL 12 5 Active Active Problems Problem Noted Date Diagnosed Date Hypertension 03/20/2021 GERD (gastroesophageal reflux disease) 1 Social History Tobacco Use Types Packs/Day Years Used Date Smoking Tobacco: Never Smokeless Tobacco: Never Alcohol Use Standard Drinks/Week Comments Yes 8 (1 standard drink = 0.6 oz pure alcohol) 8 beers daily recently cut down to 2 daily Education Answer Date Recorded Are you interested in more education? Not on deborah e 12/10/2022 Are you concerned about learning? Not on file 12/10/2022 No 12/10/2022 No 12/10/2022 Digital Access Answer Date Recorded No 01/08/2023 No 01/08/2023 Reliable internet access at home? Not on file 01/08/2023 Device with a working camera? Not on file Sex and Gender Information Value Date Recorded Sex Assigned at Not on file Legal Sex Male 1:38 PM EDT Gender Identity Not on file Sexual Orientation Not on file Last Filed Vital Signs Vital Sign Reading Time Taken Comments Blood Pressure 153/98 03/20/2021 1:10 PM EDT Pulse 67 03/20/2021 1:10 PM EDT Temperature 36.9 C (98.5 F) 03/20/2021 12:55 PM EDT Respiratory Rate 17 03/20/2021 12:55 PM EDT Oxygen Saturation 98% 03/20/2021 12:55 PM EDT Inhaled Oxygen Concentration - - Weight 79.4 kg (175 lb) 03/20/2021 11:20 AM EDT Height 175.3 cm (5' 9 ) 03/20/2021 11:20 AM EDT Body Mass Index 25.84 03/20/2021 11:20 AM EDT Plan of Treatment Upcoming Encounters Date Type Department Care Team (Late st Contact Info) Description 01/08/2026 9:50 AM EDT Office Visit [facility] [address] [place] [address] Petra Cedeno MD [address] [place] [address] [email or web address] Maintenance Due Date Last Done Comments Adult Td,Tdap Booster 1961 BLOOD PRESSURE 1961 CREATININE LEVEL 1961 LIPID PANEL 1961 POTASSIUM LEVEL 1961 DEPRESSION SCREENING 1973 HEPATITIS C SCREENING 1979 HIV ONE-TIME SCREENING (18-6 5 YEARS) 1979 COLONOSCOPY 2006 FIT TEST 2006 FOBT 2006 SIGMOIDOSCOPY 2006 VIRTUAL COLONOSCOPY 2006 PNEUMOCOCCAL VACCINES (50+ years) (1 of 1 - PCV) 2011 ZOSTER VACCINES (1 of 2) 2011 INFLUENZA VACCINE (#1) 2025 COVID-19 VACCINE (3 - 2024-2 6 season) 2025 01/20/2021, 12/30/2020 COLOGUARD 05/03/2026 05/03/2023 COLORECTAL CANCER SCREENING 05/03/2026 RSV VACCINE (1 - 1-dose 75+ series) 02/13/2036 SMOKING STATUS SCREENING (On ce After 26 Yrs) Completed 11/14/2024 HEPATITIS A VACCINES Aged Out No long er eligible based on patient's age to complete this topic HIB VACCINES Aged Out No longer eligi ble based on patient's age to complete this topic MENINGOCOCCAL VACCINES (ACWY) Aged Out No longer eligible based on patient's age to complete this topic MENINGOCOCCAL VACCINES (B) Aged Out N o longer eligible based on patient's age to complete this topic Medical Devices Implanted Type Area Paleontology Teacher Device Identifier Shelf Expiration Date Model / Serial / Lot Tissue Corneal - [id number] Implanted:Qty: 1 on 06/10/2020 by Petra Cedeno MD at [facility] Right: Eye [employer] 06/20/2020 / [id number] / [id number] Description:[facility]# [id number] 20 01 1339 Lens Intraocular [place] Li61ao 10.5d - [id number] Implanted:Qty: 1 on 03/20/2021 by Petra Cedeno MD at [facility] Right: Eye BAUSCH 09/14/2024 [id number] / [id number] / Kit Sealant Cornea Ocular Resure Latex-Free Bx/10ea - [id number] Implanted:Qty: 1 on 03/20/2021 by Petra Cedeno MD at [facility] Eye [facility] Ear Right: Eye OCULAR THERAPEUTIX 06/13/2021 [id number] / / [id number] Insurance HMO O HMO HMO O O O O HMO WORKERS COMPENSATION Advance Directives For more information, please contact: [phone] (9AM - 5PM [place], Tuesday-Tuesday) * Full Code (Latest Code Status on File) Date Activated Date Inactivated Comments 06/10/2020 9:54 AM Question Answer Comments Code Status Confirmed With: Patient Care Teams Pit Recorder Relationship Specialty Start Date End Date Danny Coburn PA [address] [place] [phone] PCP - General 03/07/20 Additional Source Comments The information contained in this document represents components of the legal health record. It is not the complete legal health record.[facility]
--- OUTSIDE RECORDS SUMMARY | 2025-04-24 17:47 | XMS_ITS | Encounter Summary ---
Author Organization [facility] Address [address] [place] [phone] Phone Care Team Providers Care Lock Tender Name Role Phone Danny Coburn Primary Care Provider + Encounter Details Date Type Department Care Team (Late st Contact Info) Description 06/10/2020 Procedure Pass [facility] PERI[facility] DEPT [address] [place] [phone] Social History Tobacco Use Types Packs/Day Years Used Date Smoking Tobacco: Never Smokeless Tobacco: Never Alcohol Use Standard Drinks/Week Comments Yes 8 (1 standard drink = 0.6 oz pure alcohol) 8 beers daily recently cut down to 2 daily Sex and Gender Information Value Date Recorded Sex Assigned at Not on file Legal Sex Male 1:38 PM EDT Gender Identity Not on file Sexual Orientation Not on file documented as of this encounter Plan of Treatment Upcoming Encounters Date Type Department Care Team (Late st Contact Info) Description 01/08/2026 9:50 AM EDT Office Visit [facility] [address] [place] [address] Petra [facility]edeno MD [address] [facility] [place] [address] [email or web address] documented as of this encounter Visit Diagnoses Not on filedocumented in this encounter Care Teams Lock Tender Relationship Specialty Start Date End Date Danny Coburn PA [address] [place] [phone] PCP - General 03/07/20 documented as of this encounter Additional Source Comments The information contained in this document represents components of the legal health record. It is not the complete legal health record.[facility]
--- OUTSIDE RECORDS SUMMARY | 2025-04-24 17:47 | XMS_ITS | Encounter Summary ---
Author Organization [facility] Address [address] [place] [address] [place] [phone] Phone Care Team Providers Care Manager Grocery Name Role Phone Pcp, Not Required Primary Care Provider Danny Dangelo Primary Care Provider + Encounter Details Date Type Department Care Team (Late st Contact Info) Description 02/28/2020 Ophth Exam [facility] Emergency Department [address] [place] [phone] Bill Marin MD [address] [place] [phone] [email or web address] Social History Tobacco Use Types Packs/Day Years Used Date Smoking Tobacco: Never Smokeless Tobacco: Never Alcohol Use Standard Drinks/Week Comments Yes 8 (1 standard drink = 0.6 oz pur e alcohol) Sex and Gender Information Value Date Recorded Sex Assigned at Not on file Legal Sex Male 1:38 PM EDT Gender Identity Not on file Sexual Orientation Not on file documented as of this encounter Plan of Treatment Upcoming Encounters Date Type Department Care Team (Late st Contact Info) Description 01/08/2026 9:50 AM EDT Office Visit [facility] [address] [address] Petra Cedeno MD [address] [place] [phone] [email or web address] documented as of this encounter Visit Diagnoses Not on filedocumented in this encounter Care Teams Manager Grocery Relationship Specialty Start Date End Date Pcp, Not Required [address] [place] [phone] PCP - General 02/28/20 03/06/20 Danny Coburn PA [address] [place] [phone] PCP - General 03/07/20 documented as of this encounter Additional Source Comments The information contained in this document represents components of the legal health record. It is not the complete legal health record.[facility]
--- OUTSIDE RECORDS SUMMARY | 2025-04-24 17:47 | XMS_ITS | Encounter Summary ---
Author Organization [facility] Address [address] [place] [phone] Phone Care Team Providers Care Dock Worker Name Role Phone Danny Coburn Primary Care Provider + Encounter Details Date Type Department Care Team (Late st Contact Info) Description 03/20/2021 Procedure Pass [facility] PERI[facility] DEPT [address] [place] [phone] Social History Tobacco Use Types Packs/Day Years [...] Description 01/08/2026 9:50 AM EDT Office Visit [facility] [address] [place] [address] Petra Cedeno MD [address] [place] [address] [email or web address] documented as of this encounter Visit Diagnoses Not on filedocumented in this encounter Care Teams Dock Worker Relationship Specialty Start Date End Date Danny Coburn PA [address] [place] [phone] PCP - General 03/07/20 documented as of this encounter Additional Source Comments The information contained in this document represents components of the legal health record. It is not the complete legal health record.[facility]
== END 2025-04-24 15:27 | disposition home or self-care (01) ==
LOC: HO.HMCH 14:30
PROVIDERS: PCP Physician Assistant; Visit Provider Physician Assistant
DX: Z00.00 Encounter for general adult medical examination without abnormal findings (principal); I10 Essential (primary) hypertension; E78.9 Disorder of lipoprotein metabolism, unspecified

== ENCOUNTER → 2025-04-24 14:30 | Outpatient (BNVA) | payer OTHER, SELFPAY | PROVIDERS: PCP Physician Assistant; Visit Provider Physician Assistant | DX: Z00.00 Encounter for general adult medical examination without abnormal findings (principal); I10 Essential (primary) hypertension; E78.9 Disorder of lipoprotein metabolism, unspecified; K21.9 Gastro-esophageal reflux disease without esophagitis; Z79.899 Other long term (current) drug therapy; Z13.31 Encounter for screening for depression; Z13.39 Encounter for screening examination for other mental health and behavioral disorders | CPT/HCPCS: 96127 ==